=== PATIENT | female | born 1975 | race Caucasian/White ===

== ENCOUNTER 2020-08-01 16:42 | Outpatient (CLI) | payer OTHER, SELFPAY | END 2020-08-01 16:43 | disposition home or self-care (01) | LOC: ANHCOVIDVC 16:42 | PROVIDERS: PCP Family Medicine | DX: Z23 Encounter for immunization (principal) | CPT/HCPCS: 0001A; 91300 ==

== ENCOUNTER 2020-08-22 16:04 | Outpatient (CLI) | payer OTHER, SELFPAY | END 2020-08-22 16:05 | disposition home or self-care (01) | LOC: ANHCOVIDVC 16:04 | PROVIDERS: PCP Family Medicine | DX: Z23 Encounter for immunization (principal) | CPT/HCPCS: 0002A; 91300 ==

== ENCOUNTER 2020-11-11 00:27 | Day surgery (SDC) | payer OTHER, SELFPAY ==
[2020-10-25 15:16] VITALS: BMI 30.9
[2020-11-11 06:24] VITALS: BP 103/59; PULSE 80; RESP 16; TEMP 35.8; O2SAT 98
[2020-11-11] MEDS: LACTATED RINGERS 1,000 ML 150 ML IV CONT (06:40)
--- NOTE | 2020-11-11 07:08 | WPDANESEPPF ---
Anes - Initial Pre Proc Eval Procedure: Operation Date: 11/11/20 07:30 Proposed Procedures p Screening Colonoscopy - Jeramie Gastelum MD Date/Time: 11/11/20 07:08 Surgeon: Jeramie Gastelum MD Pre Op Diagnosis: family hx of colon polyps, neoplasm screening Patient Data Age: 45 Gender: F Height: 1.68 m Weight: 95.1 kg Last Vital Signs Temp 96.4 F L 11/11/20 06:24 Pulse 80 11/11/20 06:24 Resp 16 11/11/20 06:24 BP 103/59 L 11/11/20 06:24 Pulse Ox 98 11/11/20 06:24 Allergies Allergy/AdvReac Type Severity Reaction Status Date / Time codeine Allergy Mild NAUSEA AND Verified 11/11/20 06:19 VOMITING montelukast Allergy Unknown nightmares Verified 11/11/20 06:19 Penicillins Allergy Unknown Rash Verified 11/11/20 06:19 Home Medications Medication Instructions Recorded Confirmed Type albuterol sulfate 90 mcg/actuation 2 inhalation INHALATION Q4-6H PRN 08/03/19 11/11/20 Rx breath activated powder inhaler #1 each multivitamin with iron 1 tablet PO DAILY 01/09/20 11/11/20 History fluticasone propionate 230 2 puff INHALATION Q12H #12 g 09/11/20 11/11/20 Rx mcg-salmeterol 21 mcg/actuation HFA inhaler spironolactone 50 mg tablet See Rx Instructions .ROUTE 09/18/20 11/11/20 Rx .COMPLEX #90 tablet sodium,potassium,mag sulfates 17.5 See Rx Instructions PO .COMPLEX 10/11/20 11/11/20 Rx gram-3.13 gram-1.6 gram oral soln #354 ml cetirizine [Zyrtec] 10 mg PO DAILY 10/25/20 11/11/20 History cholecalciferol (vitamin D3) 50 mcg PO DAILY 10/25/20 11/11/20 History [Vitamin D3] ferrous sulfate 325 mg PO DAILY 10/25/20 11/11/20 History Patient hx anesthesia problems: none Family hx anesthesia problems: none PMFSH Past Medical History Medical History Abnormal mammogram of left breast mammogram normal Family history of celiac disease Iron deficiency Mammographic calcification found on diagnostic imaging of breast (01/16/19) Palpitations Family History Family History Grandparent Diabetes mellitus Family history of dementia Mother Diabetes mellitus Hypertension Family history of elevated blood lipids Family history of cardiovascular disease Sibling Diabetes mellitus Father Family history of rheumatoid arthritis Malignant neoplasm of prostate Family history of lung cancer Family history of elevated blood lipids Family history of cardiovascular disease Cerebrovascular accident Other Family history of malignant neoplasm of breast Social History Social History Smoking status: Never smoker Alcohol intake: never Living arrangements: with family Spiritual care concerns: No Anes - Eval Final PreProcedure Day of Procedure 11/11/20 07:08 Patient weight: obese Heart: regular rate and rhythm Lungs: clear to auscultation Airway: Mallampati scale class II Neurological: alert and oriented Last oral intake: >/= 8 hours ASA classification: III Emergent: no Anesthetic plan: proceed Anesthesia type and monitoring: general GIVS and standard monitoring Informed Consent: The patient's anesthetic plan and its attendant risks and benefits were discussed with the patient/family/POA. Questions were solicited and answers provided to the satisfaction of the patient/family/POA.
--- NOTE | 2020-11-11 07:12 | PM.HPGS ---
History of Present Illness History of Present Illness Consent: Risks, benefits, and alternatives have been discussed and questions answered. Patient agrees to proceed with procedure. Chief complaint: family hx of colon polyps, neoplasm screening Narrative: Tashia Sarmiento is a 45 year old female Review of Systems Review of Systems: All systems reviewed & are unremarkable except as noted in HPI and below PMFSH Past Medical History Medical History Abnormal mammogram of left breast mammogram normal Family history of celiac disease Iron deficiency Mammographic calcification found on diagnostic imaging of breast (01/16/19) Palpitations Family History Family History Grandparent Diabetes mellitus Family history of dementia Mother Diabetes mellitus Hypertension Family history of elevated blood lipids Family history of cardiovascular disease Sibling Diabetes mellitus Father Family history of rheumatoid arthritis Malignant neoplasm of prostate Family history of lung cancer Family history of elevated blood lipids Family history of cardiovascular disease Cerebrovascular accident Other Family history of malignant neoplasm of breast Social History Social History Smoking status: Never smoker Alcohol intake: never Living arrangements: with family Spiritual care concerns: No Meds Home Medications and Allergies Home Medications Medication Instructions Recorded Confirmed Type albuterol sulfate 90 mcg/actuation 2 inhalation INHALATION Q4-6H PRN 08/03/19 11/11/20 Rx breath activated powder inhaler #1 each multivitamin with iron 1 tablet PO DAILY 01/09/20 11/11/20 History fluticasone propionate 230 2 puff INHALATION Q12H #12 g 09/11/20 11/11/20 Rx mcg-salmeterol 21 mcg/actuation HFA inhaler spironolactone 50 mg tablet See Rx Instructions .ROUTE 09/18/20 11/11/20 Rx .COMPLEX #90 tablet sodium,potassium,mag sulfates 17.5 See Rx Instructions PO .COMPLEX 10/11/20 11/11/20 Rx gram-3.13 gram-1.6 gram oral soln #354 ml cetirizine [Zyrtec] 10 mg PO DAILY 10/25/20 11/11/20 History cholecalciferol (vitamin D3) 50 mcg PO DAILY 10/25/20 11/11/20 History [Vitamin D3] ferrous sulfate 325 mg PO DAILY 10/25/20 11/11/20 History Allergies Allergy/AdvReac Type Severity Reaction Status Date / Time codeine Allergy Mild NAUSEA AND Verified 11/11/20 06:19 VOMITING montelukast Allergy Unknown nightmares Verified 11/11/20 06:19 Penicillins Allergy Unknown Rash Verified 11/11/20 06:19 Vital Signs Vital Signs - 24 hr 11/11/20 06:24 Temperature 35.8 C L Pulse Rate 80 Respiratory Rate 16 Blood Pressure 103/59 L Pulse Oximetry 98 Exam Resp: Auscultation: clear to auscultation bilaterally Cardio: Rate: regular rate Rhythm: regular rhythm GI: GI Palp: Yes Soft to palpation and No Tenderness to palpation present (GI) Assessment and Plan Assessment and plan (1) Colon cancer screening: Code(s): Z12.11 - Encounter for screening for malignant neoplasm of colon Status: Acute Assessment and Plan: Colonoscopy with possible biopsy or polypectomy or cautery or injection of substances.
[2020-11-11 07:44] VITALS: BP 98/65; PULSE 73; RESP 24; O2SAT 99
[2020-11-11 07:54] VITALS: BP 122/82; PULSE 67; RESP 20; O2SAT 98
[2020-11-11 08:04] VITALS: BP 122/80; PULSE 71; RESP 17; O2SAT 98
== END 2020-11-11 08:15 | disposition home or self-care (01) ==
PROVIDERS: PCP Family Medicine; Visit Provider Internal Medicine Gastroenterology
PROC: 0DJD8ZZ Inspection of Lower Intestinal Tract, Via Natural or Artificial Opening Endoscopic (ICD-10-PCS; CPT 45378; principal; 2020-11-11 07:30)
DX: Z12.11 Encounter for screening for malignant neoplasm of colon (principal); Z83.71 Family history of colonic polyps; D50.9 Iron deficiency anemia, unspecified; R00.2 Palpitations; Z79.51 Long term (current) use of inhaled steroids; E66.01 Morbid (severe) obesity due to excess calories; Z68.33 Body mass index [BMI] 33.0-33.9, adult
CPT/HCPCS: 45378; J2704; J7120

== ENCOUNTER 2021-06-21 10:01 | Emergency (ER) | payer OTHER, SELFPAY ==
--- NOTE | ~2021-06-21 | XR_ITS ---
XR thoracic spine 3V 06/21/2021 10:39 Indication: Back pain Procedure: 3 views of the thoracic spine Comparison: No prior studies for comparison. Findings: There is normal thoracic alignment. There are mild superior endplate compression deformitie s of T4, T5 and T7, likely chronic. No paraspinal soft tissue abnormality. Surrounding osseous struct ures within normal limits. No acute fracture is identified. Impression: 1: No acute abnormality of the thoracic spine. 2: Mild superior endplate compression deformity of T4, T5 and T7, likely chronic. Reviewed, dictated and finalized at location A. AL FUND ANALYST Impression: 1: No acute abnormality of the thoracic spine. 2: Mild superior endplate compression deformity of T4, T5 and T7, likely chroni c.
--- NOTE | 2021-06-21 10:08 | ED.GENADULT ---
HPI - General Adult General Chief complaint: Extremity Injury, Upper Stated complaint: back,shoulder and neck pain Time Seen by Provider: 06/21/21 10:08 Source: patient Mode of arrival: ambulatory Limitations: no limitations History of Present Illness HPI narrative: 46-year-old female patient presents to the [facility] with complaints of upper left thoracic back pain x2 days. Patient denies any injury to the back that she is aware of. Patient states she has been trying heat, ice, Tylenol, Aleve for the pain without much relief. Patient states she does have an appointment with her chiropractor on Wednesday and her doctor on Wednesday. Patient denies any numbness or tingling down the legs. Patient states she has had a little bit of tingling down the left arm at times. Related Data Home Medications Medication Instructions Recorded Confirmed budesonide-formoterol [Symbicort] 2 puff INHALATION Q12H 06/21/21 06/21/21 montelukast [Singulair] 10 mg PO DAILY 06/21/21 06/21/21 Allergies Allergy/AdvReac Type Severity Reaction Status Date / Time codeine Allergy Mild NAUSEA AND Verified 06/21/21 10:24 VOMITING montelukast Allergy Unknown nightmares Verified 11/11/20 06:19 Penicillins Allergy Unknown Rash Verified 06/21/21 10:24 Review of Systems Review of Systems: CONSTITUTIONAL: Denies fever, chills, or sweats. EYES: Denies visual changes, redness, or discharge. ENT: Denies rhinorrhea, congestion, sore throat, or otalgia. CARDIOVASCULAR: Denies chest pain, palpitations, or edema. RESPIRATORY: Denies cough or dyspnea. GASTROINTESTINAL: Denies abdominal pain, nausea, vomiting, or diarrhea. GENITOURINARY: Denies dysuria or hematuria. SKIN: Denies rash or itching. MUSCULOSKELETAL: Positive upper left thoracic back pain, denies joint pain, or myalgia. NEUROLOGIC: Denies headache, numbness, or weakness. PSYCHIATRIC: Denies anxiety or depression. [facility] [place] Past Medical History Medical History Abnormal mammogram of left breast mammogram normal Family history of celiac disease Iron deficiency Mammographic calcification found on diagnostic imaging of breast (09/02/19) Palpitations Family History Family History Grandparent Diabetes mellitus Family history of dementia Mother Diabetes mellitus Hypertension Family history of elevated blood lipids Family history of cardiovascular disease Sibling Diabetes mellitus Father Family history of rheumatoid arthritis Malignant neoplasm of prostate Family history of lung cancer Family history of elevated blood lipids Family history of cardiovascular disease Cerebrovascular accident Other Family history of malignant neoplasm of breast Social History Social History Smoking status: Never smoker Alcohol intake: never Spiritual care concerns: No Comments At the time of my signature I agree with nursing past medical history, surgical, social, and family history. There is no relevant family history pertinent to the presenting complaint. Exam Narrative: GENERAL: Well-appearing, well-nourished, and in no acute distress. HEAD: Normocephalic, atraumatic. EYES: PERRLA and EOMI. ENT: Nares clear, no rhinorrhea or epistaxis. Mucous membranes moist. NECK: Supple. No lymphadenopathy CHEST: Clear to auscultation. No respiratory distress. HEART: Regular rate and rhythm. No murmur heard. Normal peripheral pulses. ABDOMEN: Soft, nontender, nondistended, normal active bowel sounds. EXTREMITIES: Normal range of motion. No edema. BACK: Patient is able to ambulated without assistance. Pt is seated on the stretcher in no obvious distress. No surface trauma noted. muscle tenderness to Palpation is upper left thoracic around T3/T4. Obvious spasm noted on palpation. No step-offs or deformity noted to the cervical, thoraci
[2021-06-21 10:18] VITALS: BP 119/76; PULSE 82; RESP 18; TEMP 36.4; O2SAT 98
== END 2021-06-21 11:04 | disposition home or self-care (01) ==
PROVIDERS: Emergency Provider Nurse Practitioner Family; PCP Family Medicine
DX: M62.830 Muscle spasm of back (principal)
CPT/HCPCS: 72072; 99213; G0463

== ENCOUNTER → 2021-07-03 06:51 | Outpatient (CLI) | payer OTHER, SELFPAY ==
--- NOTE | ~2021-07-03 | MR_ITS ---
EXAMINATION: MR cervical spine wo con EXAM DATE: 07/03/2021 07:40 INDICATION: M54.12 - Radiculopathy, cervical region . Left shoulder pain, left arm and hand numbness and weakness. Symptoms 2 weeks. TECHNIQUE: Multi-sequential, multiplanar MR images of the cervical spine were obtained without contra st. Axial T2, axial T2 MERGE sequence. Sagittal T1, T2, T2 fat saturation images also obtained. Th ere is no prior study for comparison. FINDINGS: There is moderate loss of the disc height from C3 through C7. There is 2 mm anterolisthesi s C5 on C6. The vertebral bodies are otherwise aligned. The spinal cord signal intensity and intrinsi c morphology is normal. Cervicomedullary junction is normal in appearance. Level by level evaluation: C2-C3: Disc does not extend beyond the endplate margin. Uncovertebral joint arthropathy: None. Facet joint arthropathy: Mild to moderate left, mild right. Neural foraminal stenosis: No stenosis. Central canal stenosis: No stenosis. C3-C4: There is a mild to moderate diffuse disc bulge. Uncovertebral joint arthropathy: Moderate. Facet joint arthropathy: Mild to moderate. Neural foraminal stenosis: Moderate to severe right, moderate left. Central canal stenosis: Mild. C4-C5: There is a mild diffuse disc bulge. Uncovertebral joint arthropathy: Moderate. Facet joint arthropathy: Moderate bilateral. Neural foraminal stenosis: Moderate to severe bilateral. Central canal stenosis: Mild. C5-C6: There is a mild diffuse disc bulge. Uncovertebral joint arthropathy: Mild to moderate left, mild right. Facet joint arthropathy: Moderate bilateral. Neural foraminal stenosis: Mild bilateral. Central canal stenosis: Mild. C6-C7: There is a mild to moderate diffuse disc bulge with superimposed left central protrusion narro wing the left lateral recess. Uncovertebral joint arthropathy: Moderate bilateral. Facet joint arthropathy: Mild to moderate bilateral. Neural foraminal stenosis: Moderate right, mild to moderate left. Central canal stenosis: No stenosis. C7-T1: Disc does not extend beyond the endplate margin. Uncovertebral joint arthropathy: None. Facet joint arthropathy: Moderate right, mild to moderate left. Neural foraminal stenosis: No stenosis. Central canal stenosis: No stenosis. IMPRESSION: Right C3-4 neural foramina most narrowed on exam followed by bilateral C4-5 neural forame n. Reviewed, dictated and finalized at location G. BUTTER HAND IMPRESSION: Right C3-4 neural foramina most narrowed on exam followed by bilate ral C4-5 neural foramen.
== END ==
PROVIDERS: PCP Family Medicine; Visit Provider Family Medicine
DX: M54.12 Radiculopathy, cervical region (principal)
CPT/HCPCS: 72141

== ENCOUNTER → 2021-12-22 12:16 | Outpatient (CLI) | payer OTHER, SELFPAY ==
--- NOTE | ~2021-12-22 | DEXA_ITS ---
Bone Density Report Name: VAHE RIDLEY Age: 46 Sex: Female Ethnicity: White Date of : 1975 Indication: parental hip fracture; height loss; asthma or emphysema; Referring Provider: JORGE BARBER Study: Bone densitometry was performed. Exam Date: December 22, 2021 Accession number: [id number] Bone Density: Region BMD T-score Z-score Classification AP Spine (L1-L4) 1.073 0.2 0.8 Normal Femoral Neck (Left) 0.831 -0.2 0.4 Normal Total Hip (Left) 1.052 0.9 1.3 Normal Femoral Neck (Right) 0.850 0.0 0.6 Normal Total Hip (Right) 1.058 1.0 1.3 Normal Total Hip Mean 1.055 1.0 1.3 Normal World Health Organization criteria for BMD impression classify patients as: Normal (T-score at or above -1.0), Osteopenia (T-score between -1.0 and -2.5), or Osteoporosis (T-score at or below -2.5). 10-year Fracture Risk: FRAX not reported because: Premenopausal woman All T-scores for Spine Total, Hip Total, Femoral Neck at or above -1.0 Clinical Information Provided by Patient: Parent has had a hip fracture Has used the following medications: Vitamin D, Calcium Has the following medical conditions: Asthma or Emphysema Patient maximum height was 66.5 Does not regularly consume dairy products Drinks caffeinated beverages Onset of menses at age 12 Premenopausal Number of children 2 Impression: The patient's bone mass is within expected range for age, gender and ethnicity. The patient has risk factors, including: parental hip fracture. Discussion: BONE DENSITY IS WITHIN EXPECTED LIMITS FOR AGE, SEX AND RACE. Bone density is within expected limits for age, sex and race at all sites measured. The patient should follow a healthful lifestyle (good nutrition with adequate calcium and vitamin D, and appropriate weight-bearing exercise). Follow-Up: Consider repeating this study in 5 years or sooner if there is some new clinical indication. Reported by: [facility] on 12/22/2021 12:35:00 PM. Reviewed, dictated and finalized at location A. SIXTO
== END ==
PROVIDERS: PCP Family Medicine; Visit Provider Family Medicine
DX: Z13.820 Encounter for screening for osteoporosis (principal); G95.20 Unspecified cord compression
CPT/HCPCS: 77080

== ENCOUNTER → 2022-08-21 07:13 | Outpatient (CLI) | payer OTHER, SELFPAY ==
--- NOTE | ~2022-08-21 | MR_ITS ---
EXAMINATION: MR cervical spine wo con DATE: 08/21/2022 07:40 INDICATION: Cervical radiculopathy TECHNIQUE: Magnetic resonance imaging (MRI) of the cervical spine was performed without intravenous c ontrast. Sequences included sagittal T2-weighted FSE, sagittal T2-weighted FS FSE, sagittal T1-weight ed FSE, axial MERGE and axial T2-weighted FSE. COMPARISON: 07/03/2021 FINDINGS: Bone alignment is normal. Chronic mild anterior wedging at T3. Cervical vertebral body heights are no rmal. Bone marrow signal intensity is normal. Moderate disc height loss at C3-C4, C4-C5 and C6-C7 an d mild disc height loss at C2-C3 and C5-C6. Cord signal intensity is normal. Cervical soft tissues ar e unremarkable. The following disc levels are specifically discussed: C2-C3: The disc does not extend beyond the endplate margin. There is no uncovertebral joint osteoarth ritis. There is moderate right and severe left facet joint osteoarthritis. There is no neural foramin al stenosis. There is no central canal stenosis. C3-C4: Disc is bulging with annular fissure. There is severe bilateral uncovertebral joint osteoarthr itis. There is moderate left and severe right facet joint osteoarthritis. There is moderate left and moderate to severe right neural foraminal stenosis. There is mild central canal stenosis. C4-C5: Disc is bulging. There is severe bilateral uncovertebral joint osteoarthritis. There is modera te right and severe left facet joint osteoarthritis. There is moderate right and moderate to severe l eft neural foraminal stenosis. There is mild central canal stenosis. C5-C6: Annular fissure and small central disc protrusion. There is mild bilateral uncovertebral joint osteoarthritis. There is severe bilateral facet joint osteoarthritis. There is mild bilateral neural foraminal stenosis. There is mild central canal stenosis. C6-C7: Annular fissure and broad-based disc extrusion extending from foraminal zone to foraminal zone with disc material extending a few millimeters cephalad and caudal to the level of the endplates. Th ere is moderate left and severe right uncovertebral joint osteoarthritis. There is moderate bilateral facet joint osteoarthritis. There is moderate bilateral, right greater than left neural foraminal st enosis. There is mild central canal stenosis. C7-T1: Disc is minimally bulging. There is minimal bilateral uncovertebral joint osteoarthritis. Ther e is severe left and moderate right facet joint osteoarthritis. There is mild left neural foraminal s tenosis. There is no central canal stenosis. IMPRESSION: 1. No significant interval change in moderate cervical spondylosis. Reviewed, dictated and finalized at location A.
== END ==
PROVIDERS: PCP Family Medicine; Visit Provider Nurse Practitioner Family
DX: M47.22 Other spondylosis with radiculopathy, cervical region (principal)
CPT/HCPCS: 72141

== ENCOUNTER 2023-06-13 14:28 | Emergency (ER) | payer OTHER, SELFPAY ==
--- NOTE | ~2023-06-13 | XR_ITS ---
EXAMINATION: XR chest 1V portable Exam Date/Time: 06/13/2023 21:00 VB NET PROGRAMMER HISTORY: syncope Comparison: 01/03/2014. RESULT: Lines, tubes, and devices: None. Lungs and pleura: Clear. Cardiomediastinal silhouette: Stable. Other: No acute osseous or upper abdominal finding. IMPRESSION: No acute cardiopulmonary process. Reviewed, dictated and finalized at location K. NET PROGRAMMER
[2023-06-13 14:30] VITALS: BP 125/58; PULSE 80; RESP 16; TEMP 36.4; O2SAT 100
--- NOTE | 2023-06-13 14:32 | ECG_ITS ---
Measurements Intervals [place] Rate: 80 P: 64 SC: 144 QRS: 26 QRSD: 89 T: 1 QT: 377 QTc: 435 Interpretive Statements SINUS RHYTHM RSR' IN V1 OR V2, PROBABLY NORMAL VARIANT DELAYED PRECORDIAL R/S TRANSITION LOW QRS VOLTAGE IN PRECORDIAL LEADS NONSPECIFIC ST-T WAVE ABNORMALITY- ANT/INF LEADS BORDERLINE ECG NO PREVIOUS ECG AVAILABLE FOR COMPARISON Electronically Signed On 06-13-2023 19:20:25 TRIBAL JUDGE by Andrez Walker D.O.
[2023-06-13 14:52] LABS: Basophils Absolute Auto 0.1 K/mm3 (0.0-0.1); Basophils Percent Auto 0.6 % (0.2-1.2); Eosinophils Absolute Auto 0.2 K/mm3 (0-0.3); Eosinophils Percent Auto 1.6 % (0-4.4); Hematocrit 42.9 % (37.0-47.0); Hemoglobin 13.5 g/dL (12.0-15.0); Immature Granulocyte Absolute 0.02 K/mm3 (0.00-0.031); Immature Granulocyte Percent A 0.2 % (0-0.5); Lymphocytes Absolute Auto 2.38 K/mm3 (0.9-3.2); Lymphocytes Percent Auto 23.8 % (18.3-44.2); Mean Corpuscular HGB Conc 31.5 g/dl (32-36); Mean Corpuscular Hemoglobin 29.8 pg (26-34); Mean Corpuscular Volume 94.7 fl (80-100); Mean Platelet Volume 10.1 fl (7.4-10.4); Monocytes Absolute Auto 0.5 K/mm3 (0.1-0.6); Monocytes Percent Auto 4.7 % (2.6-8.5); Neutrophils Absolute Auto 6.9 K/mm3 (1.3-6.7); Neutrophils Percent Auto 69.1 % (45.5-73.1); Platelet Count Result 349 k/mm3 (150-375); Red Blood Count 4.53 M/mm3 (4.2-5.4)
[2023-06-13 15:02] LABS: Alanine Aminotransferase 21 U/L (6-35); Albumin Level 4.4 g/dL (3.5-5.1); Alkaline Phosphatase 87 U/L (38-126); Anion Gap 9 mmol/L (8-16); Aspartate Amino Transferase 24 U/L (14-36); Bilirubin,Total 0.5 mg/dL (0.2-1.3); Blood Urea Nitrogen 8 mg/dL (7-17); Calcium 9.2 mg/dL (8.4-10.2); Carbon Dioxide 27 mmol/L (22-30); Chloride 103 mmol/L (98-107); Estimated CRCL calculation 92 ml/min; Estimated Glomerular Filt Rate > 60; Glucose 97 mg/dL (65-110); Potassium 3.7 mmol/L (3.4-5.0); Sodium 139 mmol/L (137-145)
[2023-06-13 20:29] VITALS: BP 143/81; PULSE 85; RESP 15; O2SAT 100
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
[2023-06-13] MEDS: SODIUM CHLORIDE 0.9% IV 1,000 ML 999 ML IV CONT (21:11)
[2023-06-13 21:27] LABS: INR 0.9; Partial Thromboplastin Time 28.3 SECONDS (22.3-36.8); Prothrombin Time 12.8 Seconds (11.1-14.7)
[2023-06-13 21:34] LABS: Magnesium 1.9 mg/dL (1.6-2.3)
[2023-06-13 22:19] LABS: Troponin I < 0.012 ng/mL (0.000-0.034)
[2023-06-13 22:20] VITALS: BP 112/64; PULSE 67
[2023-06-13 22:21] VITALS: BP 122/77; PULSE 69
[2023-06-13 22:23] VITALS: BP 119/76; PULSE 75
[2023-06-13 22:32] VITALS: BP 119/76; PULSE 73; RESP 15; O2SAT 98
== END 2023-06-13 23:03 | disposition home or self-care (01) ==
PROVIDERS: Emergency Medicine; Emergency Provider Emergency Medicine; PCP Family Medicine
DX: R55 Syncope and collapse (principal); E61.1 Iron deficiency
CPT/HCPCS: 36415; 71045; 80053; 83735; 84484; 85025; 85610; 85730; 93005; 96360; 99284; J7030

== ENCOUNTER → 2023-06-18 15:21 | Outpatient (CLI) | payer OTHER, SELFPAY ==
--- NOTE | ~2023-06-18 | CT_ITS ---
EXAMINATION: CT brain wo con DATE: 06/18/2023 15:41 INDICATION: Syncope, collapse TECHNIQUE: Computed tomography (CT) of the head was performed without intravenous contrast. The mA wa s adjusted according to patient size. Iterative reconstruction technique was employed. Exam dose: 64 5.69 mGy-cm total exam DLP. COMPARISON: None FINDINGS: No intracranial mass lesion or hemorrhage or cerebrovascular accident, midline shift or mas s effect is detected. Normal ventricular size. Normal parry-white matter differentiation. No subdural or epidural hematoma is detected. Up to approximately 2 cm polyp or mucous retention cyst of the left axillary sinus. The included para nasal sinuses and the mastoid air cells otherwise are normally developed and aerated. No fracture or bone destruction of the cranial vault. IMPRESSION: Left maxillary sinus mucous retention cyst or polyp No intracranial abnormality Reviewed, dictated and finalized at Location A. Reviewed, dictated and finalized at location B. ETOLOGIST
== END ==
PROVIDERS: PCP Family Medicine; Visit Provider Emergency Medicine
DX: R55 Syncope and collapse (principal); J33.8 Other polyp of sinus
CPT/HCPCS: 70450

== ENCOUNTER 2023-06-24 14:51 | Outpatient (CLI) | payer OTHER, SELFPAY ==
--- NOTE | ~2023-06-24 | MR_ITS ---
EXAMINATION: MR cervical spine wo/w con DATE: 06/24/2023 15:36 INDICATION: Cervical radiculopathy. TECHNIQUE: Magnetic resonance imaging (MRI) of the cervical spine was performed without and with 17 m L MultiHance intravenous contrast. COMPARISON: Cervical spine MRI 08/21/2022 FINDINGS: There is 3 degrees levocurvature of cervical spine. There is 2 mm anterolisthesis of C5 on C6. Vertebral body heights are normal. There is moderately decreased disc height at C3-C4 and C4-C5, mildly decreased disc height at C5-C6, and moderately decreased disc height at C6-C7. The spinal cord signal intensity is normal. The following disc levels are specifically discussed: C2-C3: The disc does not extend beyond the endplate margin. There is no uncovertebral joint osteoarth ritis. There is moderate right and severe left facet joint osteoarthritis. There is no neural foramin al stenosis. There is no central canal stenosis. C3-C4: The disc is bulging. There is severe bilateral uncovertebral joint osteoarthritis. There is se carlos manuel right and moderate left facet joint osteoarthritis. There is moderate right and mild left neural foraminal stenosis. There is mild central canal stenosis with ventral indentation of the spinal cord . C4-C5: The disc is bulging. There is severe bilateral uncovertebral joint osteoarthritis. There is mo derate bilateral facet joint osteoarthritis. There is moderate right and severe left neural foraminal stenosis. There is mild central canal stenosis. C5-C6: There is a central protrusion. There is mild bilateral uncovertebral joint osteoarthritis. The re is severe bilateral facet joint osteoarthritis. There is mild bilateral neural foraminal stenosis. There is mild central canal stenosis. C6-C7: The disc is bulging. There is severe bilateral uncovertebral joint osteoarthritis. There is se carlos manuel bilateral facet joint osteoarthritis. There is moderate bilateral neural foraminal stenosis. The re is mild central canal stenosis. C7-T1: The disc does not extend beyond the endplate margin. There is no uncovertebral joint osteoarth ritis. There is severe bilateral facet joint osteoarthritis. There is mild bilateral neural foraminal stenosis. There is no central canal stenosis. IMPRESSION: 1. Moderate cervical spondylosis, stable from 08/21/2022. Reviewed, dictated and finalized at location E. 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
== END 2023-06-24 14:52 ==
LOC: GOSHIMG 14:52
PROVIDERS: PCP Emergency Medicine; Visit Provider Emergency Medicine
DX: M47.22 Other spondylosis with radiculopathy, cervical region (principal)
CPT/HCPCS: 72156; A9577

== ENCOUNTER 2023-07-02 10:31 | Outpatient (CLI) | payer OTHER, SELFPAY ==
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
== END 2023-07-02 10:32 | disposition home or self-care (01) ==
PROVIDERS: PCP Emergency Medicine; Visit Provider Emergency Medicine
DX: R55 Syncope and collapse (principal)
CPT/HCPCS: 95816

== ENCOUNTER 2023-08-05 14:18 | Outpatient (CLI) | payer OTHER, SELFPAY ==
--- NOTE | ~2023-08-05 | CT_ITS ---
EXAMINATION: CT cervical spine wo/w con DATE: 08/05/2023 14:47 INDICATION: Spondylolisthesis of cervical region. TECHNIQUE: Computed tomography (CT) of the cervical spine was performed without and with 100 mL Omnip aque 350 intravenous contrast. Automated exposure control and iterative reconstruction technique were employed. The dose-length product was 579.77 mGy-cm. COMPARISON: Cervical spine MRI 06/24/2023 FINDINGS: Bone alignment is normal. Vertebral body heights are normal. There is moderately decreased disc height at C3-C4 and C4-C5, mildly decreased disc height at C5-C6, and moderately decreased disc height at C6-C7. The following disc levels are specifically discussed: C2-C3: There is mild left uncovertebral joint osteoarthritis. There is mild right and severe left fac et joint osteoarthritis. There is no neural foraminal stenosis. There is no central canal stenosis. C3-C4: There is severe bilateral uncovertebral joint osteoarthritis. There is moderate bilateral face t joint osteoarthritis. There is moderate right and mild left neural foraminal stenosis. There is mil d central canal stenosis. C4-C5: There is severe bilateral uncovertebral joint osteoarthritis. There is moderate right and joselo re left facet joint osteoarthritis. There is mild right and moderate left neural foraminal stenosis. There is mild central canal stenosis. C5-C6: There is mild left uncovertebral joint osteoarthritis. There is severe bilateral facet joint o steoarthritis. There is mild bilateral neural foraminal stenosis. There is no central canal stenosis. C6-C7: There is severe bilateral uncovertebral joint osteoarthritis. There is severe bilateral facet joint osteoarthritis. There is mild bilateral neural foraminal stenosis. There is mild central canal stenosis. C7-T1: There is no uncovertebral joint osteoarthritis. There is severe bilateral facet joint osteoart hritis. There is mild bilateral neural foraminal stenosis. There is no central canal stenosis. IMPRESSION: 1. Moderate cervical spondylosis. Reviewed, dictated and finalized at location E.
== END 2023-08-05 14:19 ==
PROVIDERS: PCP Family Medicine
DX: M43.12 Spondylolisthesis, cervical region (principal); M48.02 Spinal stenosis, cervical region; M47.892 Other spondylosis, cervical region
CPT/HCPCS: 72127; Q9967

== ENCOUNTER 2023-08-18 07:27 | Outpatient (CLI) | payer OTHER, SELFPAY ==
--- NOTE | ~2023-08-18 | US_ITS ---
EXAMINATION: US thyroid DATE: 08/18/2023 08:10 INDICATION: Loan's thyroiditis TECHNIQUE: Multiple ultrasound images of the thyroid were obtained. COMPARISON: None. FINDINGS: The right thyroid lobe measures 4.2 x 1.3 x 1.3 cm. The left thyroid lobe measures 3.6 x 1.3 x 1.5 c m. 5 mm wider than tall mixed solid and cystic nodule with hypoechoic or solid component, smooth mar gins and without internal echogenic foci in the right thyroid lobe measures (TI-RADS 3, mildly suspic ious , FNA if >=2.5 cm, annual followup is >=1.5 cm). There is normal echotexture, echogenicity and v ascular flow throughout the thyroid gland. IMPRESSION: 1. 5 mm TI-RADS 3 right thyroid nodule which remains below size criteria for either biopsy or follow- up. Recommend clinical followup with repeat imaging if there are changes on physical exam. Reviewed, dictated and finalized at location A. IMPRESSION: 1. 5 mm TI-RADS 3 right thyroid nodule which remains below size criteria for ei ther biopsy or follow-up. Recommend clinical followup with repeat imaging if th ere are changes on physical exam.
== END 2023-08-18 07:28 | disposition home or self-care (01) ==
PROVIDERS: PCP Family Medicine; Visit Provider Family Medicine
DX: R93.89 Abnormal findings on diagnostic imaging of other specified body structures (principal)
CPT/HCPCS: 76536